=== PATIENT | female | born 1930 | race Caucasian/White ===

== ENCOUNTER → 2016-11-16 | Outpatient (CLI) | payer MEDICARE, BC ==
[~2016-11-16] MED LIST: ANUSOL-HC CREAM30 GM R; ASPIRIN LO-DOSE81 MG PO; CALAN SR GENER240 MG PO; CIMETIDINE400 MG PO; COLACE100 MG PO; DEMADEX20 MG PO; KEPPRA500 MG PO; MYCOSTATIN(NYST15 GM TOP; NORCO 5-325 MG1 TAB PO; OXYGEN M-15 INH; PERCOCET 5-3251 EACH PO; PRINIVIL OR ZES10 MG PO; QUININE PO; THYROID PO; XANAX0.25 MG PO; ZOCOR40 MG PO; [UNRECOGNIZED DRUG - REMARK] PO
== END | disposition disaster alternative care site (69) ==
LOC: GRAD 14:39
DX: S49.92XA Unspecified injury of left shoulder and upper arm, initial encounter (principal); S43.432A Superior glenoid labrum lesion of left shoulder, initial encounter; S46.012A Strain of muscle(s) and tendon(s) of the rotator cuff of left shoulder, initial encounter; M19.012 Primary osteoarthritis, left shoulder; M25.412 Effusion, left shoulder; X58.XXXA Exposure to other specified factors, initial encounter